=== PATIENT | female | born 1945 | race African-American/Black ===

== ENCOUNTER 2025-01-21 12:27 | Inpatient (IN) | payer MEDICARE ==
[~2025-01-21] VITALS: Ht 175.3 cm; Wt 72.3 kg
[2025-01-21 12:31] VITALS: O2SAT 96
[2025-01-21] MEDS: SODIUM CHLORIDE 0.9% 1,000 ML IV ONE (13:24)
[2025-01-21] MEDS: PANTOPRAZOLE SODIUM 40 MG/VIAL IV ONE (13:25)
[2025-01-21 14:54] LABS: BASOPHILS % 0.7 % (0.0-2.0); EOSINOPHILS % 0.1 % (0.0-5.0); HEMATOCRIT. 32.6 % (36.0-48.0); HEMOGLOBIN. 10.3 g/dL (12.0-16.0); LYMPHOCYTES % 17.1 % (20.0-50.0); MEAN PLATELET VOLUME 9.1 fl (7.4-10.4); MONOCYTES % 6.4 % (2.0-8.0); NEUTROPHILS % 75.7 % (40.0-76.0); PLATELET 225 x1000/uL (130-400); RED BLOOD CELL COUNT 3.95 mill/uL (4.2-5.4); RED CELL DISTRIBUTION WIDTH 16.7 % (11.6-14.6)
[2025-01-21 15:03] LABS: CREATININE 1.0 mg/dL (0.6-1.0); UREA NITROGEN BLOOD 22 mg/dL (9-23)
[2025-01-21 15:05] LABS: BILIRUBIN DIRECT 0.2 mg/dL (<=3.0); BILIRUBIN TOTAL 0.6 mg/dL (0.1-1.0); PROTEIN TOTAL 6.6 g/dL (6.0-8.3)
[2025-01-21 15:08] LABS: INR 1.0
[2025-01-21 15:10] LABS: ASPARTATE AMINOTRANSFERASE < 8 IU/L (<34)
[2025-01-21] MEDS ORDERED: ONDANSETRON HCL 4MG/2ML INJ IV PRN (16:15)
[2025-01-21] MEDS ORDERED: ACETAMINOPHEN 325MG TABLET PO PRN (16:15)
[2025-01-21] MEDS ORDERED: ZOLPIDEM TARTRATE 5MG TABLET PO PRN (16:15)
[2025-01-21] MEDS ORDERED: HYDROCODONE/ACETAMINOPHEN 5/325MG TABLET PO PRN (16:15)
[2025-01-21] MEDS ORDERED: MAGNESIUM/ALUMINUM HYDROXIDE/SIMETHICONE 30ML UDC PO PRN (16:15)
[2025-01-21] MEDS ORDERED: NALOXONE HCL 0.4MG/ML VIAL IV PRN (16:30)
[2025-01-21 17:20] VITALS: BP 162/66; PULSE 88; RESP 16; TEMP 36.2; O2SAT 98
[2025-01-21 18:51] VITALS: BP 162/68; PULSE 80; RESP 16; TEMP 36.1956
[2025-01-21] MEDS: SODIUM CHLORIDE 0.9% 1,000 ML IV SCH (19:00)
[2025-01-21] MEDS: CLONIDINE 0.1MG TABLET PO PRN (19:10)
[2025-01-21 20:00] VITALS: BP 133/62; PULSE 82; RESP 20; TEMP 35.6; O2SAT 97
[2025-01-21] MEDS: DOCUSATE SODIUM 100MG CAPSULE PO SCH (22:27)
[2025-01-21] MEDS: HYDROCORTISONE ACETATE 25MG SUPP PR SCH (22:28)
[2025-01-22] VITALS: BP 179/82; PULSE 77; RESP 18; TEMP 36.1; O2SAT 100
[2025-01-22 01:46] LABS: TROPONIN I HIGH SENSITIVITY 23 ng/L (3.0-34)
[2025-01-22 04:00] VITALS: BP 144/56; PULSE 72; RESP 18; TEMP 36.6; O2SAT 99
[2025-01-22 08:00] VITALS: BP 130/59; PULSE 89; RESP 18; TEMP 36.6; O2SAT 96
[2025-01-22] MEDS: PANTOPRAZOLE SODIUM 40 MG/VIAL IV SCH (08:51)
[2025-01-22 11:33] LABS: BASOPHILS % 0.5 % (0.0-2.0); EOSINOPHILS % 0.2 % (0.0-5.0); HEMATOCRIT. 27.3 % (36.0-48.0); HEMOGLOBIN. 8.4 g/dL (12.0-16.0); LYMPHOCYTES % 20.4 % (20.0-50.0); MEAN PLATELET VOLUME 9.3 fl (7.4-10.4); MONOCYTES % 8.2 % (2.0-8.0); NEUTROPHILS % 70.7 % (40.0-76.0); PLATELET 213 x1000/uL (130-400); RED BLOOD CELL COUNT 3.23 mill/uL (4.2-5.4); RED CELL DISTRIBUTION WIDTH 17.8 % (11.6-14.6)
[2025-01-22 12:00] VITALS: BP 120/62; PULSE 139; RESP 20; TEMP 36.4; O2SAT 97
[2025-01-22 12:01] LABS: CREATININE 1.1 mg/dL (0.6-1.0); UREA NITROGEN BLOOD 24.0 mg/dL (9-23)
[2025-01-22 12:08] LABS: TROPONIN I HIGH SENSITIVITY 28 ng/L (3.0-34)
[2025-01-22 16:00] VITALS: BP 136/48; PULSE 81; RESP 17; TEMP 36.3; O2SAT 96
[2025-01-22 20:00] VITALS: BP 139/67; PULSE 118; RESP 20; TEMP 37.2; O2SAT 95
[2025-01-23] VITALS: BP 139/57; PULSE 112; RESP 20; TEMP 37.1; O2SAT 95
[2025-01-23 04:00] VITALS: BP 133/69; PULSE 121; RESP 19; TEMP 36.8; O2SAT 100
[2025-01-23] MEDS ORDERED: HEMORRHOIDAL SUPP PR PRN (06:45)
[2025-01-23 07:03] LABS: BASOPHILS % 0.7 % (0.0-2.0); EOSINOPHILS % 0.3 % (0.0-5.0); LYMPHOCYTES % 24.5 % (20.0-50.0); MEAN PLATELET VOLUME 9.7 fl (7.4-10.4); MONOCYTES % 8.5 % (2.0-8.0); NEUTROPHILS % 66.0 % (40.0-76.0); PLATELET 171 x1000/uL (130-400); RED BLOOD CELL COUNT 2.11 mill/uL (4.2-5.4); RED CELL DISTRIBUTION WIDTH 17.3 % (11.6-14.6)
[2025-01-23] MEDS ORDERED: SODIUM CHLORIDE 0.9% 1,000 ML IV ONE (07:15)
[2025-01-23 07:56] LABS: HEMOGLOBIN. 5.5 g/dL (12.0-16.0)
[2025-01-23 07:57] LABS: HEMATOCRIT. 17.8 % (36.0-48.0)
[2025-01-23 08:10] VITALS: PULSE 107; RESP 18
[2025-01-23 08:14] LABS: CREATININE 1.0 mg/dL (0.6-1.0); UREA NITROGEN BLOOD 31 mg/dL (9-23)
[2025-01-23] MEDS ORDERED: NOREPINEPHRINE 8MG/250ML PMX 250 ML IV PRN (08:15)
[2025-01-23 08:18] LABS: FOLIC ACID (FOLATE) SERUM 6.75 ng/mL (>5.38)
[2025-01-23 08:19] LABS: VITAMIN B12 SERUM 400 pg/mL (211-911)
[2025-01-23] MEDS ORDERED: SODIUM CHLORIDE 0.9% 1,000 ML IV STA (08:19)
[2025-01-23] MEDS ORDERED: PHENYLEPHRINE 50MG/250ML PMX 250 ML IV PRN (08:30)
[2025-01-23] MEDS ORDERED: VASOPRESSIN 20 UNIT in SODIUM CHLORIDE 0.9% 99 ML IV PRN (08:45)
[2025-01-23] MEDS ORDERED: IPRATROPIUM/ALBUTEROL 0.5-3(2.5)MG/3ML NEB HHN PRN (09:00)
[2025-01-23] MEDS ORDERED: PANTOPRAZOLE 80 MG in SODIUM CHLORIDE 0.9% 100 ML IV SCH (09:30)
[2025-01-23] MEDS ORDERED: OCTREOTIDE 1,000 MCG in SODIUM CHLORIDE 0.9% 98 ML IV SCH (09:30)
[2025-01-23 09:50] LABS: PHOSPHORUS 2.9 mg/dL (2.5-4.9)
== END 2025-01-23 13:38 | DRG 377 ==
LOC: ER 12:27 → EDBEDREQ 16:07 → EDBEDREQTM 16:07 → ENRESERV 16:21 → 6WST 17:59 → MICUSO 01-23 07:10
PROVIDERS: ADMIT Internal Medicine; ATTEND Internal Medicine
PROC: 0BH17EZ Insertion of Endotracheal Airway into Trachea, Via Natural or Artificial Opening (ICD-10-PCS; principal; 2025-01-23)
DX: K92.1 Melena (principal); G92.8 Other toxic encephalopathy; J96.01 Acute respiratory failure with hypoxia; D62 Acute posthemorrhagic anemia; I95.9 Hypotension, unspecified; K64.9 Unspecified hemorrhoids; I10 Essential (primary) hypertension; E11.9 Type 2 diabetes mellitus without complications; F03.90 Unspecified dementia, unspecified severity, without behavioral disturbance, psychotic disturbance, mood disturbance, and anxiety; R57.8 Other shock; Z87.891 Personal history of nicotine dependence; Z91.148 Patient's other noncompliance with medication regimen for other reason
CPT/HCPCS: 31500; 36415; 71045; 80048; 80076; 82607; 82728; 82746; 82962; 83036; 83540; 83550; 83735; 84100; 84443; 84484; 85025; 85044; 86850; 86900; 86920; 93005; 93970; 94002; 99285; A4606; J2354; J2470; J3490; J7030; J7050